=== PATIENT | female | born 1965 | race American Indian/Alaskan Native ===

== ENCOUNTER 2017-02-20 09:48 | Outpatient (CLI) | payer BC ==
--- NOTE | 2017-02-20 11:23 | Mammography Report ---
RIGHT DIGITAL DIAGNOSTIC MAMMOGRAM: 02/20/17 09:48:00 CLINICAL: For clip placement immediately status post stereotactic biopsy for calcifications. COMPARISON:01/28/17 and 06/21/16 FINDINGS: A second biopsy clip is now identified more anterior and far medial to the previous benign stereotactic biopsy site.Minimal hematoma at the site. IMPRESSION: Concordant clip placement status post stereotactic biopsy. BI-RADS CATEGORY: 4--Suspicious Pathology pending.
--- NOTE | 2017-02-20 13:12 | Mammography Report ---
STEREOTACTIC VACUUM ASSISTED BIOPSY WITH CLIP PLACEMENT RIGHT BREAST: 02/20/17 09:48:00 CLINICAL: Status post right benign stereotactic biopsy on 06/21/16. Additional suspicious calcifications in the right breast. COMPARISON:01/28/17 and 06/07/16 mammograms. FINDINGS: Consent for the procedure was obtained. The previously described calcifications were targeted with stereotactic guidance. The skin was prepped with Betadine and anesthetized with 1% lidocaine. 2% lidocaine with epinephrine was injected for deeper anesthesia. 8 gauge Mammotome biopsy was performed from a medial approach through a small dermatotomy. Prefire and post-fire images demonstrated satisfactory positioning of the probe. Samples were obtained around the clock face. A specimen radiograph confirmed satisfactory sampling with removal of printing sales representative calcifications. A clip was deployed at the biopsy site and clip deployment was confirmed with an image. The probe was removed and hemostasis was achieved with mild pressure. A sterile dressing was applied. The patient tolerated the procedure well and there were no apparent complications. Two view mammogram demonstrated removal of calcifications and concordant placement of the biopsy clip. IMPRESSION: Uncomplicated stereotactic biopsy with clip placement right breast.
== END 2017-02-20 09:49 | disposition home or self-care (01) ==
LOC: SPVWC 09:48
PROVIDERS: ATTEND Surgery
DX: R92.0 Mammographic microcalcification found on diagnostic imaging of breast (principal)
CPT/HCPCS: 19081; 88305; A4648; G0206

== ENCOUNTER 2020-05-23 09:20 | Outpatient (CLI) | payer OTHER ==
--- NOTE | 2020-05-23 16:55 | Mammography Report ---
DIGITAL SCREENING MAMMOGRAM WITH TOMOSYNTHESIS WITH CAD, CLINICAL INFORMATION / INDICATION: Routine Screening Mammography. TECHNIQUE: Digital bilateral 2D and 3D mammography with tomosynthesis was obtained in the craniocaud al and mediolateral oblique projections. Computer-Aided Detection (CAD) analysis was used for interp retation of this study. COMPARISON: 05/20/2019 FINDINGS: Breast Density: There are scattered areas of fibroglandular density. No dominant mass or architectural distortion in either breast. However, there are again somewhat pleo morphic-appearing calcifications and a somewhat geographic distribution of the upper outer right [address]. The calcifications appear to have increased in number since the comparison exam Biopsy clips again noted in the right breast and bilateral surgical scars are present. IMPRESSION: Increased pleomorphic-appearing calcifications in the right breast as outlined above. Follow up recommendation: Magnification imaging with possible ultrasound to follow. BI-RADS 0: Incomplete evaluation. A "normal" or negative report should not discourage follow up or biopsy of a clinically significant f inding. A written summary of these findings will be mailed to the patient. The patient will be entered into a mammography reporting system which will generate a reminder letter for the patient's next appointmen t at the appropriate interval. The [employer] recommends yearly mammograms starting at age 40 and continuing as l tayler as a woman is in good health. Breast MRI is recommended for women with an approximate 20-25% or greater lifetime risk of breast cancer, including women with a strong family history of breast or ova janusz cancer or who have been treated for Hodgkin's disease. Signer Name: Vish Schuster MD Signed: 05/23/2020 4:50 PM Workstation Name: [id number]
== END 2020-05-23 09:21 | disposition home or self-care (01) ==
LOC: SPVWC 09:20
PROVIDERS: ATTEND Surgery
DX: Z12.31 Encounter for screening mammogram for malignant neoplasm of breast (principal); N64.89 Other specified disorders of breast
CPT/HCPCS: 77063; 77067

== ENCOUNTER 2020-06-14 08:12 | Outpatient (CLI) | payer OTHER ==
--- NOTE | 2020-06-14 09:18 | Mammography Report ---
DIGITAL DIAGNOSTIC MAMMOGRAM WITH CAD , 06/14/2020 CLINICAL INFORMATION / INDICATION: ABNORMAL MAMMO TECHNIQUE: Digital right mammographic imaging was performed. Magnification views were obtained. This examination was interpreted with the benefit of Computer-aided Detection analysis. COMPARISON: Prior mammograms including 05/23/2020, 05/20/2019 and 05/19/2018 FINDINGS: Breast Density: There are scattered areas of fibroglandular density. There is a regional area of amorphous calcifications throughout the upper outer quadrant, mid to post erior depth, spanning a region of approximately 5-6 cm. There are 2 biopsy clips in this general area from remote biopsies from 2017 and 2015. Calcifications have clearly increased over the past few yea rs. Biopsy clips are in the periphery of the calcifications. IMPRESSION: Increasing amorphous calcifications, upper outer quadrant right breast. Previously placed biopsy clips are on the periphery of the calcifications and therefore re biopsy is suggested. Calcif ications would be amenable to stereotactic biopsy, if clinically desired. Follow up recommendation: Biopsy BI-RADS Category 4: Suspicious for Malignancy. A "normal" or negative report should not discourage follow up or biopsy of a clinically significant f inding. A written summary of these findings will be mailed to the patient. The patient will be entered into a mammography reporting system which will generate a reminder letter for the patient's next appointmen t at the appropriate interval. According to the [employer], yearly mammograms are recommended starting at age 40 and continuing as long as a woman is in good health. Breast MRI is recommended for women with an cecile roximately 20-25% or greater lifetime risk of breast cancer, including women with a strong family his tory of breast or ovarian cancer and women who have been treated for Hodgkin's disease. Signer Name: Maribell De Jesus MD Signed: 06/14/2020 9:14 AM Workstation Name: [email or web address]
== END 2020-06-14 08:13 | disposition home or self-care (01) ==
LOC: SPVWC 08:12
PROVIDERS: ATTEND Surgery
DX: R92.1 Mammographic calcification found on diagnostic imaging of breast (principal); R92.8 Other abnormal and inconclusive findings on diagnostic imaging of breast

== ENCOUNTER 2020-07-06 13:39 | Outpatient (CLI) | payer OTHER ==
--- NOTE | 2020-07-06 16:02 | Mammography Report ---
STEREOTACTIC GUIDED RIGHT BREAST BIOPSY, 07/06/2020 CLINICAL INFORMATION / INDICATION: Suspicious right breast calcifications. COMPARISON: Diagnostic right mammogram from 06/14/2020. Screening mammogram from 05/23/2020. PROCEDURE: Risks, benefits, and indications to the procedure were discussed with the patient in detail, includin g bleeding, infection, hematoma formation, and inadequate tissue sampling. The patient agreed to proc eed with both verbal and written consent. A timeout procedure was performed with 2 patient identifier s. The patient was placed in the prone position on the biopsy table. Targeted stereotactic images were o btained of the area of interest. The targeted area was identified and coordinates were determined. Th e breast was cleansed and prepped in the usual sterile fashion. Lidocaine 1% with and without epineph rine was used for local anesthesia. Under direct stereotatic guidance, an 8 gauge Mammotome biopsy de vice was advanced to the correct position and multiple vacuum-assisted core samples were obtained. Po stbiopsy images confirm satisfactory tissue sampling within the biopsy cavity. Attempt to place a bio psy clip were unsuccessful due to a piece of tissue blocking the trough of the biopsy needle. The bi opsy device was removed. Hemostasis was achieved with manual pressure. A sterile pressure dressing wa s applied to the skin. Post-biopsy mammogram was obtained. Specimen radiographs demonstrated multiple calcifications in some of the specimens. The majority of t he calcifications are faint and difficult to see without magnification. The patient tolerated the procedure without difficulty. No complications were encountered. Postbiopsy instructions were discussed with the patient and given in writing. IMPRESSION: 1. Technically successful stereotactic guided right breast biopsy. Biopsy results are pending and will be reported in an addendum. Signer Name: Ruben Leonardo MD Signed: 07/06/2020 3:58 PM Workstation Name: [id number]
== END 2020-07-06 13:40 | disposition home or self-care (01) ==
LOC: SPVWC 13:39
PROVIDERS: ATTEND Surgery
DX: R92.1 Mammographic calcification found on diagnostic imaging of breast (principal); R92.8 Other abnormal and inconclusive findings on diagnostic imaging of breast; N64.89 Other specified disorders of breast
CPT/HCPCS: 19081; 77065; 88305; A4648

== ENCOUNTER 2020-07-13 14:15 | Outpatient (CLI) | payer OTHER | END 2020-07-13 14:16 | disposition home or self-care (01) | LOC: SPVWC 14:15 | PROVIDERS: ATTEND Surgery | DX: R92.8 Other abnormal and inconclusive findings on diagnostic imaging of breast (principal); Z53.8 Procedure and treatment not carried out for other reasons | CPT/HCPCS: 88305; A4648 ==

== ENCOUNTER 2020-08-08 07:22 | Day surgery (SDC) | payer OTHER ==
[2020-08-02 10:26] LABS: Hematocrit 39.7 % (30.3-42.9); Hemoglobin 13.2 gm/dl (10.1-14.3); Mean Corpuscular HGB Conc 33 % (30-34); Mean Corpuscular Volume 82 fl (79-97); Platelet Count 280 K/mm3 (140-440); Red Blood Count 4.85 M/mm3 (3.65-5.03); Red Cell Distribution Width 17.4 % (13.2-15.2)
[2020-08-02 11:08] LABS: BUN/Creatinine Ratio 8; Blood Urea Nitrogen 6 mg/dL (7-17); Calcium 9.3 mg/dL (8.4-10.2); Hemolysis Index 5
[~2020-08-08 07:22] MED LIST: ceFAZolin/Water 2 GM/20 ML 2 GM/20 ML SYRINGE IV NR
[2020-08-08] MEDS ORDERED: LIDOCAINE (1%) 10 MG/1 ML VIAL 20 ML MDV ONE ×2 (08:13→10:24)
--- NOTE | 2020-08-08 09:32 | Mammography Report ---
MAMMOGRAPHIC GUIDED RIGHT BREAST NEEDLE LOCALIZATION, 08/08/2020 CLINICAL INFORMATION / INDICATION: RT BREAST CALCIFICATIONS. COMPARISON: 07/06/2020. 07/13/2020. PROCEDURE: Risks, benefits and indications to the procedure were discussed with the patient. The patient agreed to proceed with both verbal and written consent. A timeout procedure was performed with 2 patient alesha ntifiers. The breast was prepped with betadine in the usual sterile fashion. Approximately 5 cc of Lidocaine 1% was used for local anesthesia. Under direct digital mammographic guidance, 2 surgical clips in the l ateral right breast at approximately 9:00 with adjacent calcifications were bracketed with a 5 cm wir e and a 7.5 cm wire. The wires were secured to the skin with a sterile dressing. The patient tolerated procedure without difficulty. No complications were encountered. IMPRESSION: 1. Satisfactory mammographic guided wire localization bracketing of the right breast lesion. Signer Name: Sanju Lomeli Jr, MD Signed: 08/08/2020 9:27 AM Workstation Name: [id number]
[2020-08-08] MEDS ORDERED: ONDANSETRON 4 MG/2 ML INJ IV PRN (09:36)
[2020-08-08] MEDS ORDERED: HYDROmorphone 1 MG/1 ML INJ IV PRN ×2 (09:36)
--- NOTE | 2020-08-08 09:37 | Anesthesia Day of Surgery ---
Anesthesia Day of Surgery - Day of Surgery Patient Examined: Yes Patient H&P Reviewed: Yes Patient is NPO: Yes
--- NOTE | 2020-08-08 09:38 | Anesthesia Consultation ---
Anesthesia Consult and Med Hx Date of service: 08/08/20 - Airway Anesthetic Teeth Evaluation: Crowns ROM Head & Neck: Adequate Mental/Hyoid Distance: Adequate Mallampati Class: Class I Intubation Access Assessment: Good - Pre-Operative Health Status ASA Pre-Surgery Classification: ASA2 Proposed Anesthetic Plan: General - Pulmonary Hx Smoking: Yes (Past hx) Hx Asthma: Yes (Last inhaler used over 1 yr ago, neb used 1 mo ago) Hx Respiratory Symptoms: No (+2FS) - Cardiovascular System Hx Hypertension: Yes - Central Nervous System Hx Back Pain: Yes Hx Psychiatric Problems: No - Gastrointestinal Hx Gastroesophageal Reflux Disease: No - Endocrine Hx Renal Disease: No Hx Liver Disease: Yes (Benign cyst on liver) - Hematic Hx Sickle Cell Disease: No - Other Systems Hx Cancer: No Hx Obesity: Yes
[2020-08-08] MEDS ORDERED: MIDAZOLAM 2 MG/2 ML INJ IV NR (10:00)
[2020-08-08] MEDS ORDERED: LACTATED RINGERS 1,000 ML IV SCH ×2 (10:00)
[2020-08-08] MEDS ORDERED: BUPIVACAINE/PF (0.25%) 2.5 MG/ML 30 ML VIAL INFILTRATI ONE ×2 (10:24→11:35)
[2020-08-08] MEDS ORDERED: dexAMETHasone 20 MG/5 ML VIAL ONE (10:30)
[2020-08-08] MEDS ORDERED: HYDROmorphone 1 MG/1 ML INJ ONE (10:32)
[2020-08-08] MEDS ORDERED: ONDANSETRON 4 MG/2 ML INJ ONE (10:32)
[2020-08-08] MEDS ORDERED: LIDOCAINE MPF (2%) 20 MG/1 ML VIAL 5 ML ONE (10:32)
[2020-08-08] MEDS ORDERED: propofoL 200 MG/20 ML VIAL IV ONE (10:33)
[2020-08-08] MEDS ORDERED: TRIAMCINOLONE 40 MG/1 ML INJ ONE (11:15)
[2020-08-08] MEDS ORDERED: TRIAMCINOLONE 40 MG/1 ML INJ IM ONE (11:36)
[2020-08-08] MEDS ORDERED: LIDOCAINE (1%) 10 MG/1 ML VIAL 20 ML MDV INFILTRATI ONE (11:36)
[2020-08-08] MEDS ORDERED: BACITRACIN ZINC OINT 28.4 GM TP ONE ×2 (12:08→12:29)
[2020-08-08] MEDS ORDERED: LACTATED RINGERS 1,000 ML ONE (12:14)
--- NOTE | 2020-08-08 12:48 | Short Stay Summary ---
Short Stay Documentation Date of service: 08/08/20 - History H&P: obtained from office - Allergies and Medications Current Medications: Allergies No Known Allergies Allergy (Unverified 08/01/20 14:47) Home Medications Medication Instructions Recorded Confirmed Last Taken Type AtorvaSTATin [Lipitor] 40 mg PO QHS 08/03/20 08/08/20 08/07/20 20:00 History Carisoprodol [Soma] 350 mg PO HS 08/03/20 08/08/20 08/07/20 20:00 History Gabapentin [Neurontin] 300 mg PO BID 08/03/20 08/08/20 08/07/20 20:00 History HYDROcodone/APAP 10-325 [[place] 1 each PO Q8HR 08/03/20 08/08/20 08/07/20 20:00 History 10/325] Morphine Sulfate 1 tab PO BID 08/03/20 08/08/20 08/07/20 20:00 History Potassium Chloride [K-Dur] 10 meq PO BID 08/03/20 08/08/20 08/07/20 20:00 History amLODIPine [Norvasc] 10 mg PO DAILY 08/03/20 08/08/20 08/08/20 07:00 History lisinopriL [Zestril] 20 mg PO QDAY 08/03/20 08/08/20 08/07/20 20:00 History oxyCODONE /ACETAMINOPHEN [Percocet 1 tab PO Q6HR PRN #12 tablet 08/08/20 Unknown Rx 5/325] Active Medications Hydromorphone HCl (Hydromorphone 1 Mg/1 Ml Inj) 0.25 mg IV Q10MIN PRN PRN Reason: Pain, Moderate (4-6) Stop: 08/08/20 23:00 Hydromorphone HCl (Hydromorphone 1 Mg/1 Ml Inj) 0.5 mg IV Q10MIN PRN PRN Reason: Pain , Severe (7-10) Stop: 08/08/20 23:00 Cefazolin Sodium (Ancef/Sterile Water 2 Gm/20 Ml) 2 gm in 20 mls @ 80 mls/hr IV PREOP NR; Protocol Stop: 08/08/20 23:59 Lactated Ringer's (Lactated Ringers) 1,000 mls @ 125 mls/hr IV DIRECT GUILLE Last Admin: 08/08/20 09:50 Dose: 125 mls/hr Documented by: Midazolam HCl (Midazolam 2 Mg/2 Ml Inj) 2 mg IV PREOP NR Stop: 08/08/20 23:59 Ondansetron HCl (Ondansetron 4 Mg/2 Ml Inj) 4 mg IV ONCE PRN PRN Reason: Nausea And Vomiting Stop: 08/08/20 16:00 - Brief post op/procedure progress note Date of procedure: 08/08/20 Pre-op diagnosis: Right breast atypia UOQ Post-op diagnosis: same Procedure: Right breast excisional biopsy of suspicous microcalcifications of UOQ Anesthesia: GETA Findings: Right wire and x2 clips present Surgeon: MARIANN OLIVERA Estimated blood loss: minimal Pathology: list (right breast needle localization) Specimen disposition: to lab Condition: stable - Disposition Condition at discharge: Good Disposition: DC-01 TO HOME OR SELFCARE Short Stay Discharge Plan Activity: other (no heavy lifting) Diet: regular Wound: keep clean and dry (may shower in 48 hours; no baths, wear breast binder; apply bacitracin twice daily) Follow up with: MARIANN OLIVERA MD [Staff Physician] - 7 Days Prescriptions: oxyCODONE /ACETAMINOPHEN [Percocet 5/325] 1 tab PO Q6HR PRN #12 tablet PRN Reason: Pain
--- NOTE | 2020-08-08 13:05 | Operative Report ---
Operative Report Operative Report: Operative Report: Date: August 08, 2020 Preoperative diagnosis: Right breast atypia of the upper outer quadrant Postoperative diagnosis: Same Procedure: Right needle localization excisional biopsy of atypia of the upper outer quadrant Surgeon: Rosina Gerber MD Jig Worker: Joanna Galloway MD Anesthesia: General Findings: Right wires and x2 clips present within radiograph specimen Complications: None EBL: Minimal (less than 25 cc) Disposition: PACU in good condition Indications for operative procedure: This is a 55 year old lady with recent abnormal screening and diagnostic right mammogram with biopsy performed of suspicious microcalcifications with pathology findings atypia. Surgical recommendation are to proceed with an excisional biopsy to rule out malignancy. Patient understands atypia high risk for breast malignancy. She wished to proceed with the above procedure. Procedure in detail: The patient was taken to radiology for wire placement for localization known area of concern. Patient was then taken to the operating room. Gen. anesthesia was administered. Right breast and axilla were prepped and draped in the normal sterile operative fashion. The wires were identified around 9:00 position. Timeout was performed. Attention was then taken towards t he right breast. A lateral breast incision was made around the 9:00 position with a 15 blade knife and dissection taken down to subcutaneous tissues and then superiorly to the location of the wire. First began raising of the superior flap with removal of the wire from the skin with dissection taken down posteriorly past the wire and down posteriorly to the pectoralis muscle, followed by raising of the inferior flap, medial flap and lateral flap with all flaps taken down past the wire and posteriorly towards the pectoralis muscle. The breast area of concern was appropriately removed posteriorly with the aid of the Bovie cautery. The wires were not encountered. Specimen was marked and then sent to pathology and radiology; radiograph specimen with wires and x2 clips present. Breast cavity was irrigated and hemostasis was obtained. Breast cavity was anestesized with 1% lidocaine mixed with quarter percent marcaine without epinephrine. The posterior deep breast tissues were approximated and closed using interrupted 3-0 Vicryl. The subcutaneous tissues were approximated and closed using interrupted 3-0 Vicryl followed by closing of the skin with a running 4-0 Monocryl and skin affix. Skin was injected with kenalog as well given hypertrophic scar history. The patient tolerated surgery very well and she was awaken from anesthesia without any complication and transported to PACU in good condition.
[2020-08-08 13:50] VITALS: BP 141/82
--- NOTE | 2020-08-08 14:50 | Mammography Report ---
RIGHT BREAST SPECIMEN RADIOGRAPH, 08/08/2020 INDICATION: Right breast target lesion: . COMPARISON: Needle localization performed earlier today FINDINGS: The previously localized target lesions are present in its entirety in the submitted specimen. The 2 localization wires are present. IMPRESSION: 1. Radiographic evidence of satisfactory excision of the target lesion. Signer Name: Sanju Lomeli Jr, MD Signed: 08/08/2020 2:45 PM Workstation Name: [id number]
--- NOTE | 2020-08-08 14:58 | Post Anesthesia Evaluation ---
- Post Anesthesia Evaluation Patient Participated: Yes Airway Patent: Yes Stable Respiratory Function: Yes Nausea/Vomiting: No Temp > 96.8F: Yes Pain Manageable: Yes Adequeate Hydration: Yes Anesthesia Complications: No Block Receding Appropriately: Not Applicable Patient on Ventilator: No
== END 2020-08-08 14:20 | disposition home or self-care (01) ==
LOC: OR 07:22
PROVIDERS: ATTEND Surgery
DX: N63.11 Unspecified lump in the right breast, upper outer quadrant (principal); Z20.822 Contact with and (suspected) exposure to COVID-19; N64.89 Other specified disorders of breast; N62 Hypertrophy of breast; N60.11 Diffuse cystic mastopathy of right breast; E78.00 Pure hypercholesterolemia, unspecified; I10 Essential (primary) hypertension; J45.909 Unspecified asthma, uncomplicated; E66.9 Obesity, unspecified; Z79.899 Other long term (current) drug therapy; Z87.891 Personal history of nicotine dependence; Z98.890 Other specified postprocedural states; Z68.33 Body mass index [BMI] 33.0-33.9, adult
CPT/HCPCS: 19125; 19281; 36415; 76098; 80048; 85027; 88307; A4648; J0690; J1100; J1170; J2405; J2704; J3301; J3490; J7120; U0003

== ENCOUNTER 2020-09-14 08:06 | Outpatient (CLI) | payer OTHER ==
--- NOTE | 2020-09-16 09:37 | Magnetic Resonance Report ---
MRI BREAST BILATERAL WITH AND WITHOUT CONTRAST, 09/14/2020 CLINICAL INFORMATION / INDICATION: DYSPLASIA RIGHT BREAST/ MICROCALCIFICATIONS. TECHNIQUE: Axial T1 and T2-weighted fat sat images were obtained precontrast. Gadolinium-based contra st was injected intravenously and serial axial T1 weighted images with fat saturation were obtained. 3-D MIP projections, kinetic analysis, and subtraction imaging were utilized to evaluate. A dedicated 8-channel breast coil was used for image acquisition. COMPARISON: Right breast needle localization and specimen radiograph performed on 08/08/2020. Right geeta ast stereotactic biopsy dated 07/13/2020. Diagnostic right mammogram dated 06/14/2020. FINDINGS: BREAST DENSITY: Scattered areas of fibroglandular density. BACKGROUND ENHANCEMENT: Low level background enhancement within both breasts. RIGHT BREAST: Along the middle and posterior depths of the upper outer right breast is a large surgic al cavity measuring 7.5 x 2.9 cm on image 38 of series 4 without suspicious enhancement or other susp icious features. No mass or other suspicious area of enhancement is noted elsewhere in the right gab[address]. LEFT BREAST: No dominant mass or suspicious area of enhancement in the left breast. AXILLAE: Mildly enlarged and thickened left axillary nodes are seen measuring up to 1.1 cm in short a xis dimension on image 417 of series 6. There is surrounding mild fat stranding. No significant right axillary adenopathy is seen. ADDITIONAL FINDINGS: Limited imaging of the thorax and upper abdomen demonstrates no focal abnormalit y. IMPRESSION: 1. No MRI evidence of malignancy in either breast with expected postoperative changes in the right br east as above. 2. Nonspecific mildly enlarged left axillary nodes with surrounding mild inflammation. These nodes co uld be reactive to a recent or ongoing infectious/inflammatory process or may be related to recent in tervention along the left axilla. Another consideration is reactive lymphadenopathy secondary to Covi d 19 vaccination. Please correlate with the clinical findings. A follow-up ultrasound of the left axi lla in 6 weeks is recommended for reevaluation. Follow up recommendation: Ultrasound BI-RADS Category 0: Incomplete. Needs additional imaging evaluation and/or prior mammograms for humaira rison. Signer Name: Ruben Leonardo MD Signed: 09/16/2020 9:32 AM Workstation Name: [id number]
== END 2020-09-14 08:07 | disposition home or self-care (01) ==
LOC: SPVIMAG 08:06
PROVIDERS: ATTEND Surgery
DX: R92.8 Other abnormal and inconclusive findings on diagnostic imaging of breast (principal); R59.0 Localized enlarged lymph nodes; R92.1 Mammographic calcification found on diagnostic imaging of breast; N60.81 Other benign mammary dysplasias of right breast
CPT/HCPCS: A9575; C8908; 77049

== ENCOUNTER 2020-11-02 10:43 | Outpatient (CLI) | payer OTHER ==
--- NOTE | 2020-11-02 18:43 | Ultrasound Report ---
ULTRASOUND BREAST LEFT LIMITED, 11/02/2020 CLINICAL INFORMATION / INDICATION: Left axillary adenopathy identified on prior breast MRI 09/14/2020. TECHNIQUE: Targeted ultrasound evaluation was performed of the area of interest. COMPARISON: Prior breast MRI 09/14/2020 FINDINGS: Sonographic evaluation of the left axilla demonstrates normal-appearing axillary lymph nodes. No vandana ical thickening is identified. IMPRESSION: Sonographic evaluation of the left axilla does not reveal any significant axillary adenop athy. If patient did have Covid vaccination in the left arm prior to the MRI, this would account for the appearance of the left axilla on MRI. If there is no history of Covid vaccination in the left arm prior to the breast MRI performed in August 2020, I would follow-up with noncontrast chest CT scan to ensure resolution of left axillary adenopathy. Follow up recommendation: Correlation with laterality of Covid vaccination BI-RADS Category 2: Benign. A normal or "negative" report should not preclude biopsy or follow-up of a clinically suspicious find ing. Signer Name: Maribell De Jesus MD Signed: 11/02/2020 6:38 PM Workstation Name: [email or web address]
== END 2020-11-02 10:44 | disposition home or self-care (01) ==
LOC: SPVWC 10:43
PROVIDERS: ATTEND Surgery
DX: R92.2 Inconclusive mammogram (principal); R59.0 Localized enlarged lymph nodes

== ENCOUNTER 2021-01-19 09:11 | Outpatient (CLI) | payer OTHER ==
--- NOTE | 2021-01-19 09:44 | Mammography Report ---
DIGITAL DIAGNOSTIC MAMMOGRAM WITH CAD, 01/19/2021 INDICATION: This is a 6 month follow-up evaluation after surgical excision of right breast calcificat ions. The patient reports no new breast symptoms. TECHNIQUE: Digital right mammographic imaging was performed. This examination was interpreted with the benefit of Computer-aided Detection analysis. COMPARISON: Diagnostic mammogram, 07/06/2020, 06/14/2020 and 05/23/2020 FINDINGS: Breast Density: There are scattered areas of fibroglandular density. There is no evidence of dominant mass, suspicious calcifications or architectural distortion in the r ight breast. New postsurgical changes are noted in the upper outer quadrant. No additional new or prakash picious mammographic finding is identified. IMPRESSION: Follow up recommendation: Back to schedule. BI-RADS Category 2: Benign. A "normal" or negative report should not discourage follow up or biopsy of a clinically significant f inding. A written summary of these findings will be mailed to the patient. The patient will be entered into a mammography reporting system which will generate a reminder letter for the patient's next appointmen t at the appropriate interval. According to the [employer], yearly mammograms are recommended starting at age 40 and continuing as long as a woman is in good health. Breast MRI is recommended for women with an cecile roximately 20-25% or greater lifetime risk of breast cancer, including women with a strong family his tory of breast or ovarian cancer and women who have been treated for Hodgkin's disease. Signer Name: Ara Marrero MD Signed: 01/19/2021 9:40 AM Workstation Name: [id number]
== END 2021-01-19 09:12 | disposition home or self-care (01) ==
LOC: SPVWC 09:11
PROVIDERS: ATTEND Surgery
DX: N60.81 Other benign mammary dysplasias of right breast (principal)